=== PATIENT | male | born 1945 | race Caucasian/White ===

== ENCOUNTER 2018-04-25 11:55 | Day surgery (SDC) | payer MEDICARE ==
--- NOTE | 2018-04-03 18:36 | History and Physical - [facility] ---
DATE OF EVALUATION: 04/03/18 CHIEF COMPLAINT/HISTORY OF CHIEF COMPLAINT: This patient presents with a history of intractable lumbar radiculopathy. Due to the failure of therapy, a spinal infusion system has been implanted since 2011. Over the last number of refills, battery depletion was identified and he is here for battery replacement on an outpatient basis. His current infusion characteristics include Hydromorphone and Baclofen. PAST MEDICAL HISTORY: Sleep apnea. Hypertension. Gastroesophageal reflux disease. Diabetes type 2. PAST SURGICAL HISTORY: Ophthalmologic surgery. Ulnar transposition. Carpal tunnel release. Pump implant. MEDICATIONS: Medications will be provided. ALLERGIES: MORPHINE. PENICILLIN. SULFA. CLINDAMYCIN. PHYSICAL EXAMINATION: GENERAL: Height is 5'8", weight is 170. VITAL SIGNS: No vital signs. HEENT: Within normal limits. LUNGS: Clear. HEART: Rapid and regular. ABDOMEN: Nontender. MUSCULOSKELETAL: Examination of the musculoskeletal system shows the pump in the right posterior gluteal margin. The incision is intact. His primary pain pattern is upper and lower extremity radiculopathy. NEUROLOGIC: Cranial nerves are intact. IMPRESSION: 1. INTRACTABLE LUMBAR RADICULOPATHY, ICD-10 CODE = M54.16 AND M54.17. 2. IMPLANTED SPINAL INFUSION SYSTEM HYDROMORPHONE AND BACLOFEN. PLAN: The patient is here on an outpatient basis for battery change to his programmable pump. No parameter changes will be made. The procedure is considered outpatient. cc: Dr. Amadou Roberson JOB NUMBER: [id number] MTDD
--- NOTE | 2018-04-25 07:11 | History and Physical - [facility] ---
CHIEF COMPLAINT/HISTORY OF CHIEF COMPLAINT: This patient presents with a history of an intractable multiple region pain pattern with a spinal infusion system infusing Hydromorphone and Baclofen. Over the last number of refills and reprogramming's battery depletion was noted. He is here for removal and replacement of the pump battery to resume appropriate normal infusion. PAST MEDICAL HISTORY: Sleep apnea, hypertension, gastroesophageal disease, diabetes Type 2, radiculopathy, and peripheral neuropathy. PAST SURGICAL HISTORY: Ophthalmologic surgery, ulnar transposition, carpal tunnel release, and pump implant. MEDICATIONS ON ADMISSION: List to be provided. ALLERGIES: MORPHINE, PENICILLIN, SULFA, AND CLINDAMYCIN. SYSTEMS REVIEW: The patient is appropriate in no acute distress. PHYSICAL EXAMINATION: Height is 5'8", weight is 170. No vital signs. HEENT: Within normal limits. LUNGS: Clear. HEART: Rapid and regular. ABDOMEN: Nontender. MUSCULOSKELETAL: Examination of the musculoskeletal system shows diffuse tenderness of the cervical, thoracic and lumbar spine. The pump in the right posterior gluteal margin was identified and the incision was intact. NEUROLOGIC: Cranial nerves are intact. IMPRESSION: 1. LUMBAR RADICULOPATHY, ICD-10 CODE M54.16 AND M54.17. 2. IMPLANTED SPINAL OPIOID INFUSION SYSTEM INFUSING HYDROMORPHONE AND BACLOFEN WITH BATTERY DEPLETION. PLAN: The patient is here on an outpatient basis for battery replacement. The procedure will be considered outpatient, we will make no parameter changes. JOB NUMBER: [id number] MTDD
[~2018-04-25 11:55] MED LIST: ACETAMINOPHEN 1,000 MG/100 ML BTL IV ONE; BACLOFEN IV ONE; FAMOTIDINE 20MG TABLET PO ONE; HYDROMORPHONE HCL IV ONE; HYDROMORPHONE PF 2MG/ML AMP 0.008 MG in 0.9 % SODIUM CHLORIDE 10ML VIA 0.996 ML IV ONE; MECLIZINE 25 MG TABLET PO ONE; METOCLOPRAMIDE 10 MG TABLET PO ONE; SODIUM CHLORIDE 0.9% IV ONE; VANCOMYCIN HCL 1,000 MG in DEXTROSE 5 % IN WATER 250 ML IVPB ONE
[2018-04-25] MEDS ORDERED: BUPIVACAINE 0.5% W/EPI MPF 30 ML VIAL IVP ONE (11:56)
[2018-04-25] MEDS ORDERED: FENTANYL PF 100MCG/2ML VIAL IV ONE (11:56)
[2018-04-25] MEDS ORDERED: PROPOFOL 10 MG/ML VIAL IV ONE (11:56)
[2018-04-25] MEDS ORDERED: LIDOCAINE 1% W/EPI 1:200,000 MPF 30ML SQ ONE (11:56)
[2018-04-25] MEDS ORDERED: MIDAZOLAM HCL 2MG/2ML VIAL IV ONE (11:56)
[2018-04-25] MEDS ORDERED: LIDOCAINE 2% MDV (20MG/ML) 20ML VIAL IV ONE (11:56)
[2018-04-25 12:34] LABS: BLOOD UREA NITROGEN 25 mg/dL (8-23); CREATININE 0.7 mg/dL (0.7-1.2); EST GLOMERULAR FILTRATION RATE > 60 mL/min; GLUCOSE,RANDOM 129 mg/dL (74-109)
[2018-04-25 12:37] LABS: PARTIAL THROMBOPLASTIN TIME 27.1 SECONDS (24.5-39.1); PROTHROMBIN TIME (PATIENT) 10.3 SECONDS (9.5-12.1)
--- NOTE | 2018-04-26 17:15 | Operative Note ---
DATE OF SURGERY: 04/25/18 PREOPERATIVE DIAGNOSES: 1. LUMBAR RADICULOPATHY, ICD-10 CODE = M54.16 AND M54.17. 2. IMPLANTED SPINAL OPIOID INFUSION SYSTEM HYDROMORPHONE AND BUPIVACAINE WITH BATTERY DEPLETION. OPERATION: 1. FLUOROSCOPICALLY-GUIDED INCISION, SUBCUTANEOUS DISSECTION, REMOVAL, AND REPLACEMENT OF PROGRAMMABLE PUMP AT RIGHT POSTERIOR GLUTEAL MARGIN. 2. DIAGNOSTIC MYELOGRAPHY WITH RADIOLOGIC SUPERVISION AND INTERPRETATION. 3. PROGRAMMING OF PUMP TO DELIVER BY CONTINUOUS INFUSION HYDROMORPHONE AT 3.39 MG A DAY. SURGEON: YOUNG SCHULER D.O. ANESTHESIA: LOCAL SEDATION. ANESTHESIA PROVIDER: VICKIE MOTA. INDICATION: This patient presents with a history of intractable lumbar radiculopathy. Due to the failure of therapies, a spinal opioid infusion system was implanted infusing Hydromorphone and Bupivacaine. Over the last number of refills, battery depletion was identified. He is here for pump battery change. PROCEDURE: Intravenous line, vital sign monitoring, IV sedation, prepped, draped sterile technique. Under imaging, the pump at the right posterior gluteal margin marked, skin infiltrated, incision made, and subcutaneous dissection was conducted to the pouch. The pouch was opened and the pump exteriorized. The pump was then from the internal catheter. A new 20 mL programmable pump prefilled Hydromorphone and Bupivacaine 30 mg per mL concentration was placed onto the field and interfaced to the indwelling catheter. A curved 24-gauge Salmeron needle was inserted into the access port and 1 mL of catheter content was aspirated clearing the catheter of opioid and a CSF mixture. Contrast was then injected the resulting diagnostic myelography showed contrast moving through the catheter. No kinks, bends, or obstructions noted. Tip of the catheter was seen at T8/9 with appropriate flow in the myelogram characteristics identified. Contrast confirming functionality of the pump/catheter combination. Antibiotic irrigation and Bovie for hemostasis. The pump was then placed into the pouch. The incision closed using 2-0 Vicryl for fascia and a 3-0 STRATAFIX for skin with a Dermabond closure. The pump was then programmed back to original parameters. Simple continuous Hydromorphone/ Bupivacaine at 3.39 mg a day. All of the alarm values were reset. He was transported to the Recovery Room stable. No side-effects from the procedure or the sedation. When fully awake and alert, he was then prepared for discharge. DISCHARGE INSTRUCTIONS: 1. Sites remain clean and dry. No showering or bathing in any way that would disrupt dressings. If it happens, contact the clinic. 2. Standard medications resumed including the antibiotic Levaquin 500 mg once a day for 14 days. 3. The office will contact the patient in 12-24 hours to set up a time in the next 7-10 days for us to evaluate the sites. Until then, he should keep his activities low limiting bend, lift, push, pull. All other instructions were provided, numbers to contact with problems given. He was then discharged. cc: Dr. Reynaga JOB NUMBER: [id number] MTDD
== END 2018-04-25 15:10 | disposition home or self-care (01) ==
LOC: SUR 11:55
PROVIDERS: ATTEND Pain Medicine Interventional Pain Medicine
DX: M54.16 Radiculopathy, lumbar region (principal); M54.17 Radiculopathy, lumbosacral region; E11.9 Type 2 diabetes mellitus without complications; M10.9 Gout, unspecified; N40.0 Benign prostatic hyperplasia without lower urinary tract symptoms; M79.7 Fibromyalgia; G89.29 Other chronic pain; G47.33 Obstructive sleep apnea (adult) (pediatric); J45.909 Unspecified asthma, uncomplicated
CPT/HCPCS: 62362; 00300; 62368; 85730; 85610; 80048; 36416; 82948; 85002; Q9967; J3370; J3010; J1170; J7060

== ENCOUNTER 2018-12-23 00:51 | Emergency (ER) | payer MEDICARE ==
[2018-12-23] MEDS ORDERED: HYDROMORPHONE HCL 2 MG/ML VIAL IM ONE (01:35)
--- NOTE | 2018-12-23 01:42 | Emergency Department Record ---
History of Present Illness - General Chief Complaint: Back Pain/Injury Stated Complaint: BACK PAIN Time Seen by Provider: 12/23/18 01:07 Source: Patient Mode of Arrival: Ambulatory Limitations: No limitations - History of Present Illness Initial Comments: pt has severe chronic back pain . he feels that his pain pump must not be functioning as his pain has gotten progressively worse. he has no new injury. he plans on seeing dr diaz in 2 days Complaint: Back pain Onset/Timin -: Days(s) Similar Symptoms Previously: Yes Radiation: Left leg, Right leg Severity: Severe Quality: Crushing Consistency: Constant Improves With: None Worsens With: None Treatments Prior to Arrival: Other - Related Data Home Medications Medication Instructions Recorded Confirmed Last Taken Duloxetine HCl [Cymbalta] 60 mg PO BID 12/23/18 12/23/18 12/22/18 Lamotrigine [Lamictal] 150 mg PO BID 12/23/18 12/23/18 12/22/18 Lidocaine Patch [Lidoderm] 3 ea TOP DAILY 12/23/18 12/23/18 12/22/18 Pioglitazone HCl [Actos] 30 mg PO DAILY 12/23/18 12/23/18 12/22/18 Sitagliptin Phosphate [Januvia] 100 mg PO QHS 12/23/18 12/23/18 12/22/18 Sulindac 200 mg PO BID 12/23/18 12/23/18 12/22/18 Previous Rx's Medication Instructions Recorded Hydrocodone/Acetaminophen [[place] 1 each PO Q6HR #7 tablet 12/23/18 7.5-325 Tablet] Allergies Allergy/AdvReac Type Severity Reaction Status Date / Time clindamycin [CLINDAMYCIN] Allergy Unknown HIVES Verified 12/23/18 01:18 morphine [MORPHINE] Allergy Unknown HIVES Verified 12/23/18 01:18 naproxen [From NAPROSYN] Allergy Unknown PT UNSURE Verified 12/23/18 01:18 OF REACTION Penicillins Allergy Unknown HIVES Verified 12/23/18 01:18 Sulfa (Sulfonamide Allergy Unknown HIVES Verified 12/23/18 01:18 Antibiotics) Travel Screening - Travel/Exposure Within Last 30 Days Have you traveled within the last 30 days?: No - Travel/Exposure Within Last Year Have you traveled outside the [place] in the last year?: No - Additonal Travel Details Have you been exposed to anyone with a communicable illness?: No - Travel Symptoms Symptom Screening: None Review of Systems Reviewed: No additional complaints except as noted below Constitutional: Reports: As per HPI. Denies: Chills, Fever, Malaise, Night sweats, Weakness, Weight change Eyes: Reports: As per HPI. Denies: Eye discharge, Eye pain, Photophobia, Vision change ENT: Reports: As per HPI. Denies: Congestion, Dental pain, Ear pain, Epistaxis, Hearing loss, Throat pain Respiratory: Reports: As per HPI. Denies: Cough, Dyspnea, Hemoptysis, Stridor, Wheezes Cardiovascular: Reports: As per HPI. Denies: Arrhythmia, Chest pain, Dyspnea on exertion, Edema, Murmurs, Orthopnea, Palpitations, Paroxysmal nocturnal dyspnea, Rheumatic Fever, Syncope Endocrine: Reports: As per HPI. Denies: Fatigue, Heat or cold intolerance, Polydipsia, Polyuria Gastrointestinal: Reports: As per HPI. Denies: Abdominal pain, Constipation, Diarrhea, Hematemesis, Hematochezia, Melena, Nausea, Vomiting Genitourinary: Reports: As per HPI. Denies: Dysuria, Frequency, Hematuria, Incontinence, Retention, Testicular pain, Testicular mass, Urgency Musculoskeletal: Reports: As per HPI, Back pain. Denies: Arthralgia, Gout, Joint swelling, Myalgia, Neck pain Skin: Reports: As per HPI. Denies: Bruising, Change in color, Change in hair/nails, Lesions, Pruritus, Rash Neurological: Reports: As per HPI. Denies: Abnormal gait, Confusion, Headache, Numbness, Paresthesias, Seizure, Tingling, Tremors, Vertigo, Weakness Psychiatric: Reports: As per HPI. Denies: Anxiety, Auditory hallucinations, Depression, Homicidal thoughts, Suicidal thoughts, Visual hallucinations Hematological/Lymphatic: Reports: As per HPI. Denies: Anemia, Blood Clots, Easy bleeding, Easy bruising, Swollen glands Past Medical History - SOCIAL HISTORY Smoking Status: Never smoker Alcohol Use: None Drug Use: None - RESPIRATORY Hx Respiratory Disorders: Yes Hx Asthma: Yes Hx Bronchitis: Yes Hx Dyspnea: Yes Hx Pneumonia: Yes Hx Sleep Apnea: Yes Hx of CPAP: Yes - CARDIOVASCULAR Hx Cardio Disorders: Yes Hx Chest Pain: Yes (nothing recent) Hx Edema: Yes (feet and ankles recent) Hx Hypertension: (denies) - NEURO Hx Neuro Disorders: Yes Hx Headaches: Yes (sometimes) Hx of Migraines: Yes (hx of) Hx Parkinson's Disease: Yes (questionable) Comment:: pt with very poor memory - GI Hx GI Disorders: Yes Hx Hepatitis/Jaundice: Yes (possibly in past with treatment) Hx Ulcer: Yes (in past) Comment:: unable to control bowels - Hx Genitourinary Disorders: Yes Hx Bladder Problem: Yes (wears depends) Hx Renal Disease: Yes (possibly stage 1) - ENDOCRINE Hx Endocrine Disorders: Yes Hx Diabetes: Yes - MUSCULOSKELETAL Hx Musculoskeletal Disorders: Yes Hx Arthritis: Yes Hx Fibromyalgia: Yes Hx Gout: Yes - PSYCH Hx Psych Problems: Yes Hx Anxiety: Yes Hx Depression: Yes Comment:: pt can not keep a train of thought - HEMATOLOGY/ONCOLOGY Hx Hematology/Oncology Disorders: Yes Hx Cancer: Yes (possibly on his "spleen" he thinks 18 yrs ago) Hx Radiation Therapy: Yes Family Medical History Any Significant Family History?: No Family Hx Comment (NOT TO BE USED IN PLACE OF ITEMS BELOW): unknown Physical Exam - General General Appearance: Alert, Oriented x3, Cooperative, Moderate distress, Other (tearful) - Head Head exam: Normal inspection - Eye Eye exam: Normal appearance, PERRL, EOMI Pupils: Normal accommodation - ENT ENT exam: Normal exam, Mucous membranes moist, Normal external ear exam, Normal orophraynx Ear exam: Normal external inspection. negative: External canal tenderness Nasal Exam: Normal inspection. negative: Discharge, Sinus tenderness Mouth exam: Normal external inspection, Tongue normal Teeth exam: Normal inspection. negative: Dental caries Throat exam: Normal inspection. negative: Tonsillar erythema, Tonsillar exudate - Neck Neck exam: Normal inspection, Full ROM. negative: Tenderness - Respiratory Respiratory exam: Normal lung sounds bilaterally. negative: Respiratory distress - Cardiovascular Cardiovascular Exam: Regular rate, Normal rhythm, Normal heart sounds - GI/Abdominal GI/Abdominal exam: Soft, Normal bowel sounds. negative: Tenderness - Rectal Rectal exam: Deferred - exam: Deferred - Extremities Extremities exam: Normal inspection, Full ROM, Normal capillary refill. negative: Tenderness - Back Back exam: Reports: Full ROM, Tenderness. Denies: Muscle spasm, Rash noted - Neurological Neurological exam: Alert, CN II-XII intact, Normal gait, Oriented X3 - Psychiatric Psychiatric exam: Normal affect, Normal mood - Skin Skin exam: Dry, Intact, Normal color, Warm Course Vital Signs 12/23/18 01:00 Temperature 98.2 F Pulse Rate [ 69 Pulse Ox Probe] Respiratory 20 Rate Blood Pressure 168/73 [Left Arm] Pulse Ox 96 - Reevaluation(s) Reevaluation #1: 12/23/18 01:44 our policy with chronic pain was d/w pt. pt does appear to be in significant pain and i am wondering if his pain pump is functioning properly. i agreed to treat his pain and he will f/u with dr diaz on monday Disposition Disposition: Discharge Clinical Impression: Acute exacerbation of chronic low back pain Disposition: Home, Self-Care Condition: (1) Good Instructions: Lumbar Radiculopathy (ED), Cervical Radiculopathy (ED) Additional Instructions: follow up with dr diaz on monday. return sooner if worse Prescriptions: Hydrocodone/Acetaminophen [[place] 7.5-325 Tablet] 1 each PO Q6HR #7 tablet Quality - Quality Measures Quality Measures: N/A - Blood Pressure Screening Does Patient Have Any of the Following: No Blood Pressure Classification: Hypertensive Reading Systolic Measurement: 168 Diastolic Measurement: 73 Screening for High Blood Pressure: < First Hypertensive BP, F/U Documented > [G8950] First Hypertensive Follow-up Interventions: Follow-up with rescreen GT 1 day and LT 4 weeks.
== END 2018-12-23 02:10 | disposition home or self-care (01) ==
LOC: ER 00:51
DX: G89.29 Other chronic pain (principal); M54.9 Dorsalgia, unspecified
CPT/HCPCS: 96372; 99284